=== PATIENT | male | born 1995 | race African-American/Black ===

== ENCOUNTER 2018-09-14 19:30 | Emergency (ER) | payer BC ==
[2018-09-14 21:29] VITALS: BMI 23.0
[2018-09-14 22:56] LABS: URINE APPEARANCE CLEAR; URINE BILIRUBIN NEGATIVE (<2.0 mg/dL); URINE COLOR COLORLESS; URINE GLUCOSE (UA) NEGATIVE (NEGATIVE); URINE KETONE NEGATIVE (NEGATIVE); URINE LEUK ESTERASE NEGATIVE (NEGATIVE); URINE NITRITE NEGATIVE (NEGATIVE); URINE PROTEIN NEGATIVE (NEGATIVE); URINE UROBILINOGEN NEGATIVE mg/dL (0.2-1.0)
--- NOTE | 2018-09-14 23:45 | PDOC ---
History of Present Illness - General Chief Complaint: Urinary Problem Stated Complaint: blood in urine Time Seen by Provider: 09/14/18 23:26 - History of Present Illness Initial Comments: 09/14/18 23:41 23 yo M wtih no significant pmh whop/w urethral pain and hematuria. Patient reports acute onset of red tinged urine when urinating this evening at [facility]. Reports small/trace drops, of urine with painful urination. Denies h/o similar presentation. No identifiable alleviators or triggers. Denies trauma to gentalia. Patient denies ESQUIVEL, vision change, palpitations, cough, wheezing, orthopena, PND , leg swelling/pain, N/V, F,C, CP, SOB, pelvic pain, dyspareurnia, urinary complaints, BPR, abdominal pain, flank pain, diarrhea, constipation, lightheadedness, weakness, sensory changes. PMHx: as noted above. Denies h/o nephrolithiasis. ROS: as noted SHx: Recreational marijuana use. Denies Etoh, IVDA, tobacco use. Sexually active with multiple female partners. Reports intermittent condom barrier protection. Last sexually active yesterday evening with female partner. Denies h /o STIs. Allergies: NKDA Past History - Past Medical History Allergies/Adverse Reactions: Allergies Allergy/AdvReac Type Severity Reaction Status Date / Time No Known Allergies Allergy Verified 09/14/18 21:29 Home Medications: Ambulatory Orders NK [No Known Home Medication] 09/14/18 COPD: No - Suicide/Smoking/Psychosocial Hx Smoking History: Never smoked Have you smoked in the past 12 months: No Information on smoking cessation initiated: No Hx Alcohol Use: No Drug/Substance Use Hx: No *Physical Exam - Vital Signs Last Vital Signs Temp Pulse Resp BP Pulse Ox 98.4 F 51 L 16 130/65 100 09/14/18 21:27 09/14/18 21:27 09/14/18 21:27 09/14/18 21:27 09/14/18 21:27 - Physical Exam Comments: 09/14/18 23:45 GENERAL: Awake, alert, and fully oriented, in no acute distress HEAD: No signs of trauma, normocephalic, atraumatic EYES: PERRLA, EOMI, sclera anicteric, conjunctiva clear ENT: Hearing grossly normal, nares patent, oropharynx clear without exudates. Moist mucosa NECK: Normal ROM, supple, no lymphadenopathy, JVD, or masses LUNGS: No distress, speaks full sentences, clear to auscultation bilaterally HEART: Regular rate and rhythm, normal S1 and S2, no murmurs, rubs or gallops, peripheral pulses normal and equal bilaterally. ABDOMEN: Soft, nontender, normoactive bowel sounds. No guarding, no rebound. No masses GENITOURINARY: Absent scrotal or penile edema, ertyhema, lesions, discharge, ttp. Absent epididymal ttp. Nml cremasteric reflex. Absent inguinal bulge. Asbent perianal skin change. EXTREMITIES : Normal inspection, Normal range of motion, no edema. No clubbing or cyanosis. NEUROLOGICAL: Cranial nerves II through XII grossly intact. Normal speech, normal gait, no focal sensorimotor deficits SKIN: Warm, Dry, normal turgor, no rashes or lesions noted Moderate Sedation - Procedure Monitoring Vital Signs: Procedure Monitoring Vital Signs Temperature 98.4 F 09/14/18 21:27 Pulse Rate 51 L 09/14/18 21:27 Respiratory Rate 16 09/14/18 21:27 Blood Pressure 130/65 09/14/18 21:27 O2 Sat by Pulse Oximetry (%) 100 09/14/18 21:27 ED Treatment Course - ADDITIONAL ORDERS Additional order review: Laboratory Results 09/14/18 22:45 Urine Color Colorless Urine Appearance Clear Urine pH 6.0 Ur Specific [place] 1.004 L Urine Protein Negative Urine Glucose (UA) Negative Urine Ketones Negative Urine Blood Negative Urine Nitrite Negative Urine Bilirubin Negative Urine Urobilinogen Negative Ur Leukocyte Esterase Negative Medical Decision Making - Medical Decision Making 09/14/18 23:45 23 yo M wtih no significant pmh whop/w urethral pain and hematuria. Vitals wnl, AF, A&Ox3. Physical exam unremarkable. Will consider cystitis, nephrolithaisis, urethritis, G/C. ED Course: UA: Neg G/C Patient stable for d/c with return precautions. *DC/Admit/Observation/Transfer Diagnosis at time of Disposition: Urethritis - Discharge Dispostion Disposition: HOME Condition at time of disposition: Stable Decision to Admit order: No - Referrals Referrals: ON STAFF,NOT [Primary Care Provider] - - Patient Instructions Printed Discharge Instructions: DI for Urethritis Additional Instructions: Please return to the emergency department with any new or worsening symptoms or concerns. Please follow up with your primary care physician within 72 hours. Call back for results in two days [phone]. - Post Discharge Activity - Attestations Physician Attestion: 09/14/18 23:41 I attest to the information provided in this note.
--- NOTE | 2018-09-15 00:01 | PDOC ---
Attending Attestation - HPI HPI: 09/15/18 00:01 The patient is a 23 year old male with no reported past medical history presents to the emergency department with urinary symptoms. The patient reports earlier today, while urinating he noticed small amounts of blood in the urine, associated with painful urination. Denies prior similar presentation. The patient reports he is sexually active with multiple female partners. Allergies: NKDA - Medical Decision Making 09/15/18 00:02 Documentation prepared by Ellen Prasad, acting as senior medical billing specialist for Alicia Buitrago MD. <Ellen Prasad - Last Filed: 09/15/18 00:01> - Resident Resident Name: John Flores - ED Attending Attestation I have performed the following: I have examined & evaluated the patient, The case was reviewed & discussed with the resident, I agree w/resident's findings & plan - Physicial Exam PE: 09/15/18 20:49 Agree with resident exam - Medical Decision Making 09/15/18 20:49 Pt has a normal UA; no UTI; no bacteria and no WBC. We added on a STD panel on the [place]. Pt will be notified if anything comes back positive. Pt is stable for d /c home, <Alicia Buitrago - Last Filed: 09/15/18 20:50>
[2018-09-15 00:05] VITALS: BP 126/66; PULSE 69; TEMP 98.1
== END 2018-09-15 00:11 | disposition home or self-care (01) ==
LOC: JERFT 21:22 → JER 21:22
DX: N34.2 Other urethritis (principal)
CPT/HCPCS: 81003; 87086; 99282-25